=== PATIENT | female | born 1965 | race Caucasian/White ===

== ENCOUNTER → 2023-07-29 08:51 | Outpatient (REF) | payer OTHER, SELFPAY | LOC: WDC 08:51 | PROVIDERS: ATTENDING PHYSICIAN Physician Assistant | DX: Z12.31 Encounter for screening mammogram for malignant neoplasm of breast (principal) | CPT/HCPCS: 77063; 77067 ==

== ENCOUNTER → 2023-09-04 06:57 | Outpatient (REF) | payer OTHER, SELFPAY | LOC: MRI 3T 06:57 | PROVIDERS: ATTENDING PHYSICIAN Physician Assistant Surgical; FAMILY PHYSICIAN Physician Assistant | DX: M23.91 Unspecified internal derangement of right knee (principal) | CPT/HCPCS: 73721 ==

== ENCOUNTER 2023-09-22 00:13 | Emergency (ER) | payer OTHER, SELFPAY ==
[2023-09-22 00:20] VITALS: BP 166/95
[2023-09-22 00:49] LABS: % Basophils 0.5 % (0-2); % Eosinophils 1.7 % (0-6); % Lymphocytes 30.8 % (20.5-51.1); % Monocytes 9.2 % (1.7-9.3); % Neutrophils 56.8 % (42.2-75.2); Absolute Eosinophils 0.1 10^3/uL (0-0.7); Absolute Immature Granulocytes 0.1 10^3/uL (0-0.05); Absolute Lymphocytes 1.8 10^3/uL (1.2-3.4); Absolute Monocytes 0.5 10^3/uL (0.1-0.6); Absolute Neutrophils 3.3 10^3/uL (1.4-6.5); Hematocrit 34.4 % (37.0-47.0); Hemoglobin 11.6 g/dL (12.0-16.0); Mean Corp Hgb Conc. 33.7 g/dL (33.0-37.0); Mean Corpuscular Hgb 30.5 pg (27.0-31.0); Mean Corpuscular Volume 90.5 fL (81.0-99.0); Mean Platelet Volume 9.1 fL (7.4-10.4); Nucleated Red Blood Cells % 0 %; Platelet Count 201 10^3/uL (130-400); Red Cell Dist. Width 13.4 % (11.5-14.5); White Blood Cell Count 5.9 10^3/uL (4.8-10.8)
[2023-09-22 00:59] LABS: ALT (SGPT) 24 U/L (0-35); AST (SGOT) 29 U/L (14-36); Albumin 4.5 g/dl (3.5-5.0); Alkaline Phosphatase 93 U/L (38-126); Blood Urea Nitrogen 16 mg/dl (7-17); Calcium 9.9 mg/dl (8.4-10.2); Carbon Dioxide 27 mmol/L (22-30); Chloride 106 mmol/L (98-107); Glucose 104 mg/dl (70-99); Potassium 4.3 mmol/L (3.5-5.1); Sodium 141 mmol/L (135-145); Total Bilirubin 0.5 mg/dl (0.2-1.3); Total Protein 7.3 g/dl (6.3-8.2); eGFR > 60.00
[2023-09-22 02:14] VITALS: BP 125/76
--- NOTE | 2023-09-22 02:16 | ED.GENMED ---
History of Present Illness
General
Chief Complaint: Heart Rate Problem
Source: patient
Exam Limitations: none
Time Seen by Provider: 09/22/23 02:00
Travel History
Have you had any contact with someone who has COVID-19?: No
Do you have any symptoms of coronavirus? Fever > 100 degrees, chills, cough, shortness of breath, sore throat, loss of taste or smell, muscle aches, or headache?: No
History of Present Illness
History of Present Illness:
This is a 58 year old female that comes in with c/o palpitations. State that she went to lay down in bed and she felt like she had a fish flopping in her chest. State that she has a pulse ox and she used this to see her heart rate and it said that
she was only 45. States that she has a slight headache. Denies any fever, chills, chest pain, SOB,, abd pain, nausea, vomiting, diarrhea, dizziness, urinary burning.
Past History
Past History
ED Past Medical History: Arrthythmia (Palpitations, ), HTN and Other (Migraines, )
ED Past Surgical History: Cholecystectomy, Gynecological (Partial hysterectomy), Orthopedic (Ankle carpal tunnel. ) and Urological (Bladder sling)
Social History
Tobacco: Non-smoker
Alcohol: Occasional
Personal:
Living: with family
Family History
Family History: Negative Diabetes, Hypertension, Early CAD, Asthma or Cancer
Review of Systems
Review of Systems
All Other Systems: ROS reviewed and negative except as documented in HPI and ROS
Constitutional: Reports no symptoms; Denies fever or chills
EENT: Reports no symptoms
Respiratory: Reports no symptoms; Denies cough or trouble breathing
Cardiac: Reports palpitations; Denies chest pain
ABD/GI: Reports no symptoms; Denies abdominal pain, nausea, vomiting or diarrhea
: Reports no symptoms; Denies dysuria, frequency or urgency
Musculoskeletal: Reports no symptoms
Skin: Reports no symptoms
Neurological: Reports headache (Slight); Denies dizzy
Psychiatric: Reports no symptoms
Phy Exam
General Physical Exam
General Presentation: well appearing and no apparent distress
General age: appears stated age
General Skin: warm and dry
General Habitus: normal
General Mental: alert
General Hydration: appears well hydrated
ENT Exam
ENT Exam: TM's normal, pharynx normal and neck supple
Eye Exam
Eye Exam: EOMI
Cardiovascular Exam
Cardiovascular Exam: regular rate/rhythm, no edema, no murmur and normal peripheral pulses
Pulmonary Exam
Pulmonary Exam: lungs clear, no respiratory distress, no rales, chest non tender, no crackles, no rhonchi, no wheezing and no cough
Gastrointestinal Exam
Gastrointestinal Exam: normal bowel sounds, non tender, soft, no organomegaly, no pulsatile mass and non distended
Musculoskeletal Exam
Musculoskeletal Exam: full ROM and no edema
Skin Exam
Skin Exam: normal color, warm/dry, no rash and no petechia
Psychiatric Exam
Psychiatric Exam: normal mood/affect
Course
Orders/Labs/Results
Orders:
Orders
09/22/23 00:23
Electrocardiogram (*1) Urgent
Reason for Study: Chest Pain
EKG- Treatment ONCE
09/22/23 00:35
Comprehensive Metabolic Panel Urgent
TSH Reflex To Free T4 Urgent
Comment: ADDED
09/22/23 00:36
Complete Blood Count/With Diff Urgent
Troponin I Urgent
09/22/23 02:02
Add On- LAB Urgent
Tests Added?: TSH with reflex to free T4
Abnormal Lab Results
09/22/23 09/22/23
00:35 00:36
RBC 3.80 L 10^6/uL
(4.20-5.40)
Hgb 11.6 L g/dL
(12.0-16.0)
Hct 34.4 L %
(37.0-47.0)
Abs Immat Gran (auto) 0.1 H 10^3/uL
(0-0.05)
Immature Gran % 1.0 H %
(0-0.5)
Glucose 104 H mg/dl
(70-99)
09/22/23 00:36
09/22/23 00:35
H/H slightly low, Glucose nonfasting, Troponin <0.012
Vital Signs
Initial and Last Documented VS:
Initial Vital Signs
Temp Pulse Resp BP Pulse Ox
98.1 F 83 14 166/95 99
09/22/23 00:20 09/22/23 00:20 09/22/23 00:20 09/22/23 00:20 09/22/23 00:20
Last Documented Vital Signs
Temp Pulse Resp BP Pulse Ox
98.1 F 72 14 107/62 93
09/22/23 00:20 09/22/23 04:00 09/22/23 04:00 09/22/23 04:00 09/22/23 04:00
MDM/Problems Addressed
Differential Diagnosis Includes:
Palpitations.
MDM/Problems Addressed:
This is a 58 year old female that comes in with c/o feeling like her heart was flopping around in her chest like a fish. States that she has had palpitations before and she takes Metoprolol 50mg in the morning and 50mg in the evening which she took
around 6pm. States that she went to lay down in bed when she felt this.
Will check labs and monitor.
Back into see patient. Explained that her blood work was normal along with the Troponin. There was noted some PAC's on the monitor. TSH is pending. Explained to patient that she could decrease her caffeine intake as it you are prone to extra
beats. Patient to increase her water intake to 8-8oz glasses daily. Follow up with the [facility] for further evaluation as they may wish to add to her medication, increase or have patient wear a Holter monitor. Patient to return with any chest
pain, or any other concerns.
Chronic conditions affecting care:
History of Palpitations
Acute Exacerbation and/or Progression of Chronic Illness:
Palpitations
*Pulse Oximetry
Patient hypoxic: no
*EKG
Interpreted by ED Provider?: Yes
Heart Rate: 79
Rate: normal
Rhythm: sinus
[place]: left axis deviation
Interval: normal interval
QRS Pattern: normal QRS
Ischemia: T-wave inversion (III, aVR, V1, V2, V3, Checked by Dr. Almeida)
*Towel Distributor Interpretation
Rate: normal
Heart Rate: 77
Rhythm: sinus
*Critical Care Note
Total Time (30-74mins, 75-104mins- exclusive of procedures): Not Applicable
ED Attending Note
-
Portions of this chart may have been created with voice recognition software.� Occasional wrong word or��sound alike� substitutions may have occurred due to the inherent limitations of voice recognition software.
Discharge Plan
Departure
Patient Disposition: Home (Routine Discharge)
Date of Disposition: 09/22/23
Time of Disposition: 03:05
Patient with high blood pressure during this ER visit?: Yes
Condition: Good
Covid-19: Not Applicable
Discharge Problem:
Palpitation
Instructions: Palpitations (DC), BLOOD PRESSURE
Prescriptions:
No Action
multivitamin [One Daily Essential] 1 EACH tablet
1 ea PO DAILY
milk thistle 500 MG capsule
1,000 mg PO DAILY
naproxen sodium [Aleve] 220 MG tablet
2 tablets PO DAILYPRN PRN (Reason: knee pain)
metoprolol succinate [Toprol XL] 25 MG tablet extended release 24 hr
25 mg PO DAILY
guar gum-calcium carbonate 100 MG tablet,chewable
200 mg PO DAILY
cholecalciferol (vitamin D3) 2,000 UNITS tablet
2,000 units PO DAILY
L.acidoph, paracasei,B. lactis 1 EACH capsule
1 ea PO DAILY
Activity Restrictions/Additional Instructions:
As discussed, your blood work is normal. Please increase your water intake to 8-8oz glasses daily. Follow up with the family doctor or your [facility] for further evaluation. They may need to increased your Metoprolol or add another medication to
help decrease the palpitations. They may also wish for you to wear a Holter monitor for further evaluation. Please try and stay away form the Caffeine as this will increased the palpitations as this is a stimulant. IF YOU HAVE ANY CHEST PAIN, OR
ANY OTHER CONCERNS PLEASE RETURN TO THE EMERGENCY ROOM.
Interventions
Interventions:
*Risk Screen - Suicide Last Done: 09/22/23 00:20
*General Assessment Last Done: 09/22/23 00:20
*Neglect/Abuse Screening Last Done: 09/22/23 00:20
ED- Fall Risk Assessment Last Done: 09/22/23 02:30
*ED COVID-19 Vaccine History Last Done: 09/22/23 04:34
*Nursing Disposition Last Done: 09/22/23 04:34
ED- Cardiac Assessment Last Done: 09/22/23 02:30
ED- Pulmonary Assessment Last Done: 09/22/23 02:30
Discharge Date and Time
Discharge Date/Time: 09/22/23 04:35
Print Language: PARAGUAYAN
[2023-09-22 02:56] LABS: Troponin I < 0.012 ng/ml
[2023-09-22 03:00] VITALS: BP 105/74
[2023-09-22 03:46] LABS: TSH Reflex To Free T4 1.15 uIU/ml (0.47-4.68)
[2023-09-22 04:00] VITALS: BP 107/62
--- NOTE | 2023-09-22 04:15 | EDRN ---
Went over results with patient and plan to be discharged, patient understands results and follow up.
== END 2023-09-22 04:35 | disposition home or self-care (01) ==
LOC: EMR 00:13
PROVIDERS: Clinical Nurse Specialist Family Health; EMERGENCY PHYSICIAN Emergency Medicine; FAMILY PHYSICIAN Physician Assistant
DX: R00.2 Palpitations (principal); I10 Essential (primary) hypertension; Z82.49 Family history of ischemic heart disease and other diseases of the circulatory system; Z90.49 Acquired absence of other specified parts of digestive tract
CPT/HCPCS: 99283; 80053; 84443; 84484; 85025; 93005

== ENCOUNTER → 2024-05-19 06:45 | Outpatient (REF) | payer OTHER, SELFPAY | LOC: PAVMRI 06:45 | PROVIDERS: ATTENDING PHYSICIAN Physician Assistant Surgical; REFERRING PHYSICIAN Specialist | DX: M25.562 Pain in left knee (principal) | CPT/HCPCS: 73721 ==

== ENCOUNTER 2024-07-03 05:56 | Inpatient (IN) | payer OTHER, SELFPAY ==
[2024-06-08 09:02] LABS: Hematocrit 37.2 % (37.0-47.0); Mean Corp Hgb Conc. 32.3 g/dL (33.0-37.0); Mean Corpuscular Hgb 29.9 pg (27.0-31.0); Mean Corpuscular Volume 92.5 fL (81.0-99.0); Mean Platelet Volume 9.5 fL (7.4-10.4); Platelet Count 202 10^3/uL (130-400); Red Blood Cell Count 4.02 10^6/uL (4.20-5.40); White Blood Cell Count 4.9 10^3/uL (4.8-10.8)
[2024-06-08 09:30] LABS: ALT (SGPT) 32 U/L (0-35); AST (SGOT) 29 U/L (14-36); Albumin 4.6 g/dl (3.5-5.0); Alkaline Phosphatase 66 U/L (38-126); Blood Urea Nitrogen 14 mg/dl (7-17); Calcium 9.5 mg/dl (8.4-10.2); Carbon Dioxide 29 mmol/L (22-30); Chloride 102 mmol/L (98-107); Glucose 86 mg/dl (70-99); Potassium 4.1 mmol/L (3.5-5.1); Sodium 140 mmol/L (135-145); Total Bilirubin 0.7 mg/dl (0.2-1.3); Total Protein 6.9 g/dl (6.3-8.2); eGFR > 60.00
[2024-06-08 10:36] LABS: Glycohemoglobin (HgbA1c) 5.5 % (4.0-5.6)
[2024-06-08 13:08] VITALS: BMI 32.3
[2024-06-08 14:10] VITALS: BMI 32.3
[2024-07-03] VITALS (21 sets, daily range): BP systolic 93–139; BP diastolic 57–107; PULSE 66–80; O2SAT 92; BMI 32.3
[2024-07-03] MEDS: NORMOSOL-R/PLASMALYTE-A 1000 IV (06:31)
[2024-07-03] MEDS: CELEBREX 200 MG PO (06:31)
[2024-07-03] MEDS: TYLENOL 650 MG PO ×2 (06:31→20:14)
--- NOTE | 2024-07-03 07:59 | W.PN.UPDATE ---
Update Note
Progress Note Update
L knee OA s/p L TKA w/ Dr Jaime 07/03/24
DVT prophylaxis - Eliquis at modified dosing, b/l venous foot pumps
- Eliquis 5 mg PO BID to be resumed POD 3 if hemodynamically stable
HTN - + parameters - monitor BP
PACs with occasional palpitations, PSVT, and PAF - monitor on tele
- Continue BB
- Resume Eliquis as stated above
GERD - add Pepcid HS
Probable IBS w/ diarrhea - Colace ONLY initially for post-surgical bowel regimen
Mild mitral regurgitation
Mild aortic regurgitation
Diverticulosis
Hemorrhoids with intermittent rectal bleeding
Multilevel degenerative disc disease
Remote migraines
Stress incontinence
Obesity, BMI 32.3
--- NOTE | 2024-07-03 09:09 | OR.RPT ---
Operative Report
Operative Report
Orthopaedic Surgery Operative Note
DATE OF OPERATION: 07/03/2024
PREOPERATIVE DIAGNOSES: Osteoarthritis, left knee.
POSTOPERATIVE DIAGNOSES: Osteoarthritis, left knee.
OPERATION PERFORMED:
1) Left total knee arthroplasty (CPT 44232)
2) Intraosseous administration of analgesic (CPT 86404)
SURGEON: Rick Jaime MD
ASSISTANTS: Roland Rosa PA-C who helped with patient and limb positioning and retraction
ANESTHESIA: Spinal by anesthesia plus intraoperative infusion of morphine into the tibial metaphysis by Dr. Jaime
COMPLICATIONS: None.
ESTIMATED BLOOD LOSS: 20mL
DRAINS: None
TOURNIQUET TIME: 47 minutes.
IMPLANTS:
- Woo Persona CR Femur, size 8
- Woo Persona tibia base plate, size D
- Woo Persona medial constrained articular surface, 12 mm
- All-polyethylene patellar component, size 29
- DJO Taft bone cement
INDICATIONS: The patient presented to my office with debilitating left knee pain due to osteoarthritis. We reviewed the natural history of this problem, as well as the risks, benefits, and alternatives of various treatment options. The patient
exhausted all nonoperative treatment options and wished to proceed with knee replacement surgery. The patient understood the risks which included, but were not limited to, bleeding, infection, failure to relieve pain, more pain than preop, damage to
blood vessels and nerves, need for reoperation, mechanical failure of the implants, wound healing problems, stiffness, instability, blood clot, pulmonary embolism, myocardial infarction, pneumonia, arrhythmia, CVA, and . The patient accepted
these risks and wished to proceed. All questions were answered, and informed consent was obtained.
PROCEDURE IN DETAIL: The patient was identified in the preoperative holding area. The left knee was identified as the operative site. The patient was taken in the operating room and placed in a supine position on the operating table. Spinal
anesthesia was performed. IV antibiotics and tranexamic acid were administered. An SCD was placed on the right lower extremity. A well-padded tourniquet was placed on the proximal thigh. All bony prominences were well padded. The left lower
extremity was prepped and draped in the usual sterile fashion.
We performed a surgical time-out. An interarticular block was performed with local anesthetic with epinephrine. The limb was exsanguinated with an Esmarch bandage, then the tourniquet was inflated to 250 mmHg. I performed interosseous administration
of morphine-saline solution via a Jamshidi style intraosseous needle into the proximal medial tibial metaphysis as described by Too Dasilva MD. This was performed to aid in pain control. A midline skin incision was made followed by a medial
parapatellar arthrotomy. A subperiosteal peel was performed on the medial tibia. I excised part of the infrapatellar fat pad to improve our visualization as well as tissue over anterior femur. The patella was everted and the knee was flexed. There
was full thickness wear of central patella and medial femoral condyle and medial tibia plateau. The trochlea was dysplastic and flat. I excised the remnants of the anterior and posterior cruciate ligaments as well as tibial and femoral osteophytes
with rongeurs.
The knee was flexed, and the extramedullary tibial cutting guide was aligned. Piatt was aligned at neutral, rotation was centered on the tibial tubercle, and coronal alignment was aligned with the mechanical axis of the tibia and center of the ankle
joint. The cut height was 10mm off the lateral tibia joint surface. The guide was secured into place. The MCL and LCL were protected. The tibia surface was cut. The cut surface was inspected after removal to ensure appropriate height and slope based
on the preoperative plan. The cut was checked with a drop nataly. It was centered nicely at the ankle.
A drill was used to open the femoral canal. The intramedullary distal femoral cutting guide was inserted into the femur. This was set at 5 degrees +0. This was secured into place with three pins. The cut level was checked with an bari wing. The
distal femur was cut through the cutting guide. The IM guide was reinserted to double check that the level of resection was flush and in appropriate alignment.
Karen's line and the transepicondylar axis were marked on the femur. The femoral sizing guide was applied to the anterior femur. Pins were inserted, and the 4-in-1 cutting guide was applied and secured into place. The rotation was compared to
Karen's line, the transepicondylar axis, and the neutral tibia cut and was found to be appropriate. The width was checked and found to be appropriate and lateralized on the femur. The anterior, posterior, and chamfur cuts were made. A lamina
hand stapler was used to open the flexion gap, and posterior osteophytes were removed with a curved osteotome. The remnant medial and lateral meniscus were also removed. I prophylactically cauterized the lateral geniculate arteries. A 10mm spacer block
was applied to the flexion gap and was noted to be balanced medially and laterally. The knee was extended, and the block showed symmetric to extension and flexion gaps.
The tibia was exposed and sized. Rotation was set in line with the tibial tubercle and congruent with the femur. The trial was secured into place with two pins. The trial femur was impacted into place, and a trial articular surface was placed. The
knee was taken through range of motion and noted to be stable throughout the arc of motion without gaping or excess tension. In extension, a measured resection of the patella was performed. The patella was sized, and lug holes were drilled. A trial
patella component was applied, and it was noted to track centrally throughout the arc of motion without need for further releases.
The trials were removed. The tibia keel was prepared with the punch and the drill. The bone surfaces were irrigated with sterile saline and dried. The cement was mixed in a vacuum mixer. Cement gun was used to apply cement to the tibial surface and
the undersurface of the tibial implant. Cement was pressurized into the tibial canal and tibia surface. The tibial component was impacted into place. Excess cement was removed. Cement was applied to the femoral surface and the femoral component. The
femoral component was impacted into place, and excess cement removed. A trial articular surface was inserted, and the knee was extended while the cement polymerized. The tourniquet was let down, and meticulous hemostasis was achieved. Dilute
betadine was poured into the wound and allowed to soak for 3 minutes. The knee was irrigated with copious normal saline.
Once the cement was polymerized, the trial articular surface was removed. Any excess cement was removed. The knee was trialed, and the final articular surface was selected and inserted into the tibial locking mechanism. The knee was reduced. A fresh
drape was applied to the surgical field.
The arthrotomy was closed with 0-PDS. Once closed, an interarticular block was performed with local anesthetic with epi. The deep dermal layer was closed with 2-0 PDS, and the subcuticular skin was closed with 3-0 monocryl. A Dermabond Prineo
dressing was applied to the skin in full flexion. Once this was completely dry, a sterile waterproof dressing was applied.
The anesthesia team performed an adductor canal block in the OR. The patient awoke from anesthesia without any difficulties. The sponge and instrument counts were correct x2 at the end of the case.
Seferino Jaime MD
[2024-07-03] MEDS: DILAUDID 0.25 MG IV (10:15)
[2024-07-03] MEDS: NORCO 5/325 1 TABLET PO (10:17)
--- NOTE | 2024-07-03 13:29 | PTCARENOTE ---
Pt w/steady 02 sat 90s, suddenly began desaturating to 70s, then return to normal. Tried to wean 02 prior to pt desaturating, replaced after 1st episode.
--- NOTE | 2024-07-03 14:36 | PTCARENOTE ---
Dr Donaldson in to see pt , pt sat WNL while he was here. Pt continues to desat to mostly 70s-80s, sometimes as low as 58 on RA, returns to normal after 20 seconds or so.Will notify Tori Connor next.
[2024-07-03] MEDS: DELTASONE 40 MG PO (15:07)
[2024-07-03] MEDS: DUONEB 3 ML INH (15:18)
--- NOTE | 2024-07-03 15:30 | W.PN.UPDATE ---
Update Note
Progress Note Update
Was alerted to patient's oxygen desaturations while recovering in the PACU.
When evaluated, patient's pulse ox ranged in the 70s and 80s.
Pulse ox was on patient's toe at the time. I did ask it be placed on the patient's ear.
Pulse ox on patient's ear with encouraged deep breathing and IS use was between 87-94%.
Patient was observed for several minutes. No tachypnea. Lungs CTA b/l. No reported SOB, chest pain, or cough. Overall looks well.
No personal hx of pulmonary issues. No CHF or PE hx.
Will order Prednisone taper and Duoneb STAT w/ prn doses for later should they be needed.
Patient will be monitored on continuous pulse ox overnight and will continue IS q1hwa.
Discussed with surgeon - will hold off on imaging for now given SpO2 improves w/ encouraged deep breathing and IS.
[2024-07-03] MEDS: ANCEF 5 IV ×2 (16:33→21:02)
--- NOTE | 2024-07-03 19:27 | PTCARENOTE ---
pt admitted to 2S room 2115 via bed from PACU at 1700. pt oriented to room, bed controls, call moyer and plan of care with verbalized understanding. assessment as documented. pt denies SOB, chest pain or pressure. telemetry placed ad reading SR
in 90's. continuous pox on and reading 92% on RA. care ongoing.
[2024-07-03] MEDS: COLACE 100 MG PO (20:15)
[2024-07-03] MEDS: ELIQUIS 2.5 MG PO (20:15)
[2024-07-03] MEDS: TOPROL XL 50 MG PO (20:15)
[2024-07-03] MEDS: BACTROBAN 2% OINTMENT 1 APPLIC NASAL (20:15)
[2024-07-03] MEDS: VITAMIN D3 (cholecalciferol) 125 MCG PO (20:15)
[2024-07-03] MEDS: PEPCID 20 MG PO (21:02)
--- NOTE | 2024-07-03 21:30 | PTCARENOTE ---
Addendum entered by Guerline Moreno RN 07/04/24 00:46:
Patient down to 1L n/c- 91-93%
Original Note:
Patient is on 2L oxygen as patient pulse ox to 85% on RA. clear lungs/ No SOB/ no c/o any other discomfort. On 2L patient sat about 91-95%. Bp- 133/75, HR- 89, Afebrile. Dr Estrella, made aware via TT. No new orders at this time.
[2024-07-04 03:45] VITALS: BP 117/74
[2024-07-04] MEDS: TYLENOL 650 MG PO (06:20)
--- NOTE | 2024-07-04 06:49 | W.PN.ORTHO ---
Today's Communication / Plan
-
59-year-old female POD #1 Left Total Knee Arthroplasty 07/03/[address] Jaime.
- WBAT LLE with use of walker for assistance.
- DVT prophylaxis - Eliquis at modified dosing, b/l venous foot pumps. Eliquis 5 mg PO BID to be resumed POD 3.
- PT/OT. Outpatient PT to begin Saturday07/06/2024 at [facility].
- Post-operatively, we were alerted to patient's oxygen desaturation while covering in the PACU. Since, O2 saturation has improved. She is currently resting in bed comfortably and denies any lightheadedness, chest pain, or shortness of breath. She
was on oxygen supplementation yesterday evening (1-2 L), however was recently transitioned to room air. We will continue to monitor this with PT/OT evaluation this AM. As long as O2 saturation is stable, we will plan for discharge home today. If
desaturation is noted again, will consider medical/pulmonary consultation prior to D/C.
- Ice therapy and elevation for edema control.
- Post-operative pain medication script sent to pharmacy on file.
- Mepilex dressing to remain in place until post-op visit.
- Follow-up as outpatient 2 weeks post-op. Appointment scheduled.
Assessment
.
Distal Motor Intact: Yes
Dressing:
Mepilex dressing clean, dry and intact.
Calf is soft and nontender to palpation.
Able to dorsiflex and plantarflex left ankle.
NVI distally.
Assessment:
POD #1 Left Total Knee Arthroplasty 07/03/[address] Jaime.
Plan
.
Surgery / Date: 07/03/[address] Jaime
DVT Prophylaxis: Other (Eliquis )
Activity:
Out of bed.
PT/OT.
WBAT LLE.
Discharge Plan: Home w/ Outpatient PT
Discharge Information:
Outpatient physical therapy to begin on Saturday at [facility].
Subjective
.
.:
Patient seen and examined this morning by Orthopedic Surgery. Overall, she reports that she is doing well. She reports that her pain is well-controlled. She denies any lightheadedness, chest pain, or shortness of breath. PT/OT evaluation pending
this AM. Post-operatively, we were alerted to patient's oxygen desaturation while covering in the PACU. Since, O2 saturation has improved. She is currently resting in bed comfortably. She was on oxygen supplementation yesterday evening (1-2 L),
however was recently transitioned to room air.
Vital Signs and Labs
.
Vital Signs and Labs:
Lab Results
06/08/24 07:31
06/08/24 07:31
Temp Pulse Resp BP Pulse Ox
97.5 F 87 16 117/74 94
07/04/24 03:45 07/04/24 03:45 07/04/24 03:45 07/04/24 03:45 07/04/24 03:45
Non-invasive Hgb result: 12.9
--- NOTE | 2024-07-04 07:03 | W.DS.TRANS ---
DC Summary - [facility] [employer]
-
Discharge Instructions:
Documentation # [id number]
Sleep Apnea Risk Low
Discharge Diagnosis/Procedures L knee OA s/p L TKA w/ Dr Jaime 07/03/24
Diet Regular
Activity As tolerated,With Walker
Driving Restrictions Not until seen by your Dr
Bathing Restrictions OK to Shower
Other Services PT
Wound Care Leave dressing on until seen by surgeon's office
for follow-up in 2 weeks.
Instructions:
Stand-Alone Forms: Total Hip/Knee Replacement D/C
Changes to Home Medications: No
Discharge Medications:
DC Medications w/original date entered in Fnbox
Dose (Milk Thistle, Turmeric) 2 oz PO BID 06/05/24
Metamucil 2 tsp PO DAILY 06/05/24
Probiotic 1 cap PO DAILY 06/05/24
apixaban 5 mg tablet (Eliquis) 5 mg PO BID 06/05/24
biotin 10,000 mcg capsule 10,000 mcg PO DAILY 06/05/24
cholecalciferol (vitamin D3) 125 mcg (5,000 unit) tablet (Vitamin D3) 125 mcg PO DAILY 06/05/24
coenzyme Q10 200 mg capsule (Co Q-10) 200 mg PO DAILY 06/05/24
garlic extract 1,000 mg PO DAILY 06/05/24
metoprolol succinate 50 mg tablet,extended release 24 hr 50 mg PO BID 06/05/24
multivitamin 1 tab PO DAILY 06/05/24
mupirocin 2 % topical ointment 1 applic intranasal BID #1 tube 06/08/24
acetaminophen 325 mg tablet 650 mg (2 x 325 mg) PO Q4HPRN PRN mild pain #60 tabs 07/03/24
apixaban 2.5 mg tablet (Eliquis) 2.5 mg PO BID #3 tabs 07/03/24
docusate sodium 100 mg capsule 100 mg PO BID #30 caps 07/03/24
famotidine 20 mg tablet 20 mg PO HS #30 tabs 07/03/24
hydrocodone 5 mg-acetaminophen 325 mg tablet 1 - 2 tab PO Q6H PRN moderate-severe pain #30 tabs 07/03/24
lisinopril 40 mg tablet 40 mg PO HS #1 tab 07/03/24
ondansetron HCl 4 mg tablet 4 mg PO Q6H PRN nausea and vomiting #30 tabs 07/03/24
prednisone 10 mg tablet 40 mg (4 x 10 mg) PO TAPER #20 tabs 07/03/24
sennosides 8.6 mg tablet (Lorrie-rafael) 17.2 mg (2 x 8.6 mg) PO BID PRN constipation #30 tabs 07/03/24
Home Medication Changes
Pending Results: Yes
Additional Pending Results:
PT/OT Evaluation this AM.
O2 Saturation.
Total time spent discharging patient (in min): 45 Minutes
[2024-07-04 07:30] VITALS: BP 119/72
[2024-07-04 09:25] VITALS: BP 160/80
[2024-07-04] MEDS: DELTASONE 40 MG PO (09:43)
[2024-07-04] MEDS: ELIQUIS 2.5 MG PO (09:43)
[2024-07-04] MEDS: COLACE 100 MG PO (09:43)
[2024-07-04] MEDS: BACTROBAN 2% OINTMENT 1 APPLIC NASAL (09:43)
[2024-07-04] MEDS: VITAMIN D3 (cholecalciferol) 125 MCG PO (09:43)
[2024-07-04] MEDS: TOPROL XL 50 MG PO (09:44)
[2024-07-04] MEDS: NORCO 5/325 2 TABLET PO (09:44)
[2024-07-04 10:36] VITALS: O2SAT 97
--- NOTE | 2024-07-04 11:08 | CM ---
Met with pt and her at bedside
Pt reports she lives with her in a multi-story home; no steps to enter, 13 steps to 2nd fl
Independent at baseline, active, drives
DME - rolling walker, single point cane, shower chair
SNF/HH - denies past hx
Has ride at discharge
PCP - Lili Huang
Pharm - [facility] in [place]
Has appoint on 07/06 for outpatient PT at the ambulatory center
Has Rx and transportation
Plan - home with outpatient PT
[2024-07-04 11:26] VITALS: BP 123/67
== END 2024-07-04 12:33 | disposition home or self-care (01) | DRG 470 ==
LOC: 2 SOUTH 05:56
PROVIDERS: ADMITTING PHYSICIAN Orthopaedic Surgery; FAMILY PHYSICIAN Physician Assistant; REFERRING PHYSICIAN Internal Medicine Cardiovascular Disease
PROC: 0SRD0J9 Replacement of Left Knee Joint with Synthetic Substitute, Cemented, Open Approach (ICD-10-PCS; 2024-07-03)
DX: M17.12 Unilateral primary osteoarthritis, left knee (principal); I47.19 Other supraventricular tachycardia; I10 Essential (primary) hypertension; I48.0 Paroxysmal atrial fibrillation; K21.9 Gastro-esophageal reflux disease without esophagitis; K64.9 Unspecified hemorrhoids; K58.0 Irritable bowel syndrome with diarrhea; E66.9 Obesity, unspecified; N39.3 Stress incontinence (female) (male); Z68.32 Body mass index [BMI] 32.0-32.9, adult; Z87.19 Personal history of other diseases of the digestive system; Z90.710 Acquired absence of both cervix and uterus; Z79.01 Long term (current) use of anticoagulants; Z88.4 Allergy status to anesthetic agent; Z88.5 Allergy status to narcotic agent; Z88.0 Allergy status to penicillin
CPT/HCPCS: 36415; 73560; 80053; 83036; 85027; 87070; 94640; 97110; 97116; 97163; 97167; 97530; 97535; C1713; C1776

== ENCOUNTER 2024-07-05 03:29 | Emergency (ER) | payer OTHER, SELFPAY ==
[2024-07-05 03:29] VITALS: BMI 34.2
[2024-07-05 03:32] VITALS: BP 170/86
--- NOTE | 2024-07-05 04:57 | ED.GENMED ---
History of Present Illness
General
Chief Complaint: Post Operative Problem(s)
Source: patient and spouse
Exam Limitations: none
Time Seen by Provider: 07/05/24 04:39
History of Present Illness
History of Present Illness:
59-year-old female presents with left knee pain, nausea and vomiting. Patient had total knee replacement surgery on Saturday and was discharged home yesterday afternoon. She states that her pain was under control. This evening she took Vicodin but
no Zofran. Tonight she states that the pain was out of control and she had severe nausea or vomiting. She presents to the emergency department for
Past History
Past History
ED Past Medical History: Arrthythmia (Palpitations, ), HTN and Other (Migraines, )
ED Past Surgical History: Cholecystectomy, Gynecological (Partial hysterectomy), Orthopedic (Ankle carpal tunnel. ) and Urological (Bladder sling)
Social History
Tobacco: Non-smoker
Alcohol: Occasional
Personal:
Living: with family
Family History
Family History: Negative Diabetes, Hypertension, Early CAD, Asthma or Cancer
Phy Exam
General Physical Exam
General Presentation: moderate distress
General age: appears stated age
General Skin: warm and dry
General Habitus: normal
General Mental: alert
General Hydration: appears well hydrated
ENT Exam
ENT Exam: EOMI, pharynx normal, neck supple and normocephalic
Eye Exam
Eye Exam: PERRL, cornea clear and conjunctiva normal
Cardiovascular Exam
Cardiovascular Exam: regular rate/rhythm, no edema, no murmur and normal peripheral pulses
Pulmonary Exam
Pulmonary Exam: lungs clear, no respiratory distress, no rales, no crackles, no rhonchi, no stridor, no wheezing and no cough
Gastrointestinal Exam
Gastrointestinal Exam: normal bowel sounds, non tender, soft, no organomegaly, no pulsatile mass and non distended
Neurological Exam
Neurological Exam: alert, oriented x3, no motor deficits and speech normal
Musculoskeletal Exam
Musculoskeletal Exam: full ROM and no edema
Skin Exam
Skin Exam: normal color, warm/dry, no rash and no petechia
Psychiatric Exam
Psychiatric Exam: normal mood/affect
Course
Orders/Labs/Results
Orders:
Orders
07/05/24 04:48
Ondansetron Injectable [Zofran] 4 mg .ROUTE .STK-MED ONE
07/05/24 04:49
HYDROmorphone [Dilaudid] 1 mg .ROUTE .STK-MED ONE
07/05/24 04:52
HYDROmorphone [Dilaudid] 1 mg IV NOW STA
07/05/24 04:53
Ondansetron Injectable [Zofran] 4 mg IV NOW STA
07/05/24 05:12
US Periph Venous LOWER Ext LT Urgent
Comment:
Reason For Exam: pain
07/05/24 06:35
HYDROmorphone [Dilaudid] 1 mg IV NOW STA
07/05/24 06:41
Acetaminophen 1000MG/100Ml [Ofirmev] 1,000 mg in 100 ml IV ONCE
Acetaminophen IV Indication:: ED Narcotic History-ONCE
Vital Signs
Initial and Last Documented VS:
Initial Vital Signs
Temp Pulse Resp BP Pulse Ox
98.1 F 86 24 170/86 100
07/05/24 03:32 07/05/24 03:32 07/05/24 03:32 07/05/24 03:32 07/05/24 03:32
Last Documented Vital Signs
Temp Pulse Resp BP Pulse Ox
98.1 F 68 16 117/64 99
07/05/24 03:32 07/05/24 06:32 07/05/24 06:32 07/05/24 08:00 07/05/24 08:30
*Critical Care Note
Total Time (30-74mins, 75-104mins- exclusive of procedures): Not Applicable
Update Note
Update Note:
Spoke with Dr. Estrella, orthopedics. He recommends we get her pain under control. He will speak with one of his associates to change the pain medication. He does recommend discharge.
ED Attending Note
-
Portions of this chart may have been created with voice recognition software.� Occasional wrong word or��sound alike� substitutions may have occurred due to the inherent limitations of voice recognition software.
Discharge Plan
Departure
Patient Disposition: Home (Routine Discharge)
Date of Disposition: 07/05/24
Time of Disposition: 07:08
Patient with high blood pressure during this ER visit?: Yes
Discharge Problem:
Post-operative pain
Instructions: Wound Care (DC), Postoperative Pain (DC)
Prescriptions:
No Action
multivitamin Tablet
1 tab PO DAILY
metoprolol succinate 50 mg Tablet Extended Release 24 Hr
50 mg PO BID
biotin 10,000 mcg Capsule
10,000 mcg PO DAILY
coenzyme Q10 [Co Q-10] 200 mg Capsule
200 mg PO DAILY
cholecalciferol (vitamin D3) [Vitamin D3] 125 mcg (5,000 unit) Tablet
125 mcg PO DAILY
Eliquis 5 mg Tablet
5 mg PO BID
Rx Instructions:
to resume 07/06/24
Dose (Milk Thistle, Turmeric)
2 oz PO BID
Metamucil
2 tsp PO DAILY
Probiotic
1 cap PO DAILY
garlic extract
1,000 mg PO DAILY
Rx Instructions:
can resume 07/10/24
mupirocin 2 % ointment
1 applic intranasal BID Qty: 1 0RF
Patient Comments:
started treatment saturday06/30/24 and completed BID, last took at home 07/03/24 am
docusate sodium 100 mg Capsule
100 mg PO BID Qty: 30 0RF
Eliquis 2.5 mg Tablet
2.5 mg PO BID Qty: 3 0RF
Rx Instructions:
Cut 5 mg tab in 05/07 (= 2.5 mg) and take twice a day from 3/1 PM to 3/2 PM.
Resume Eliquis 5 mg twice daily on 3/3 AM.
hydrocodone-acetaminophen 5-325 mg Tablet
1 - 2 tab PO Q6H PRN (Reason: moderate-severe pain) Qty: 30 0RF
Rx Instructions:
1 tab for moderate pain, 2 if severe.
Dx total joint.
famotidine 20 mg Tablet
20 mg PO HS Qty: 30 0RF
Rx Instructions:
Take nightly while on post-surgical pain meds to prevent GI upset.
sennosides [Lorrie-rafael] 8.6 mg Tablet
17.2 mg PO BID PRN (Reason: constipation) Qty: 30 0RF
Rx Instructions:
Add to bowel regimen of Colace if no bowel movement occurs within 48-72 hours post-surgery.
acetaminophen 325 mg Tablet
650 mg PO Q4HPRN PRN (Reason: mild pain) Qty: 60 0RF
Rx Instructions:
Do NOT exceed >4000 mg daily while on [place].
1 [place] tab = 325 mg of Tylenol.
ondansetron HCl 4 mg tablet
4 mg PO Q6H PRN (Reason: nausea and vomiting) Qty: 30 0RF
lisinopril 40 mg Tablet
40 mg PO HS Qty: 1 0RF
Rx Instructions:
HOLD IF systolic blood pressure <130 while on post-surgical narcotics.
prednisone 10 mg tablet
40 mg PO TAPER Qty: 20 0RF
Rx Instructions:
4 TABS X 2 DAYS, 3 TABS X 2 DAYS, 2 TABS X 2 DAYS, 1 TAB X 2 DAYS, THEN STOP
Referrals:
Lili Huang PA [Family Provider] -
Rick Jaime MD [Active] -
Activity Restrictions/Additional Instructions:
Someone from Dr. Jaime's office will reach out to you to adjust your pain medication. Please continue to take your current pain medicines as previously directed.
It was a pleasure meeting you and taking part in your care. We hope for your continued healing and wellness.
Please read discharge instructions in their entirety. However, they are for general education and may not describe your exact diagnosis at discharge. Information on your ER visit and medical conditions were discussed with you along with appropriate
follow up information...
If indicated, please take your medications as instructed and indicated on discharge paperwork.
Please schedule a follow up appointment as directed. Call to schedule an appointment
Please return to the emergency department with ANY change in, persisting, or worsening of symptoms. If any of your symptoms do not improve, or persist, or become more severe within 6-12 hours, please return to the emergency department for further
care.
Please return to the emergency department if you develop a headache, neck pain/stiffness, fever greater than 100.4F, chest pain, shortness of breath, persistent nausea, vomiting, slurred speech, difficulty walking, numbness/tingling, weakness, signs
of infection or any other symptoms that are worrisome to you.
If you have any questions or concerns please do not hesitate to call the Hospital at or E-mail me directly at [email or web address]
Interventions
Interventions:
*Risk Screen - Suicide Last Done: 07/05/24 03:32
*General Assessment Last Done: 07/05/24 04:42
*Neglect/Abuse Screening Last Done: 07/05/24 03:32
ED-Musculoskeletal Assessment Last Done: 07/05/24 05:31
ED-Peripheral Vascular Assessment Last Done: 07/05/24 05:31
ED-Skin Assessment Last Done: 07/05/24 05:31
Discharge Date and Time
Print Language: STATELESS
[2024-07-05] MEDS: ZOFRAN 4 MG IV (05:00)
[2024-07-05] MEDS: DILAUDID 1 MG IV ×2 (05:00→06:41)
[2024-07-05 05:09] VITALS: BP 141/73
--- NOTE | 2024-07-05 05:34 | EDRN ---
Pt.'s pulse ox. dropped to 80% on RA while sleeping s/p analgesic administration. Pt. able to bring pulse ox. back up to 95% on RA w/ direction. Pt. placed on 2L NC while asleep. Pt. awaits ready ultrasound.
[2024-07-05 06:32] VITALS: BP 136/65
[2024-07-05] MEDS: OFIRMEV 100 IV (06:48)
[2024-07-05 07:00] VITALS: BP 130/66
[2024-07-05 08:00] VITALS: BP 117/64
== END 2024-07-05 08:51 | disposition home or self-care (01) ==
LOC: EMR 03:29
PROVIDERS: EMERGENCY PHYSICIAN Student in an Organized Health Care Education/Training Program; FAMILY PHYSICIAN Physician Assistant; OTHER PHYSICIAN Orthopaedic Surgery
DX: G89.18 Other acute postprocedural pain (principal); M25.561 Pain in right knee; I10 Essential (primary) hypertension; Z96.652 Presence of left artificial knee joint
CPT/HCPCS: 96374; 96375; 96376; 99284; 93971

== ENCOUNTER → 2024-07-29 13:39 | Outpatient (REF) | payer OTHER, SELFPAY | LOC: WDC 13:39 | PROVIDERS: ATTENDING PHYSICIAN Physician Assistant | DX: Z12.31 Encounter for screening mammogram for malignant neoplasm of breast (principal) | CPT/HCPCS: 77063; 77067 ==

== ENCOUNTER 2024-07-31 12:41 | Outpatient (RCR) | payer OTHER, SELFPAY | END 2024-07-31 23:59 | disposition home or self-care (01) | LOC: RPT 12:41 | PROVIDERS: ATTENDING PHYSICIAN Orthopaedic Surgery; FAMILY PHYSICIAN Physician Assistant | DX: Z47.1 Aftercare following joint replacement surgery (principal); Z96.652 Presence of left artificial knee joint; Z73.6 Limitation of activities due to disability | CPT/HCPCS: 97010; 97110; 97116; 97140; 97162; 97530 ==

== ENCOUNTER 2024-09-01 09:55 | Outpatient (RCR) | payer OTHER, SELFPAY | END 2024-09-01 23:59 | disposition home or self-care (01) | LOC: RPT 09:55 | PROVIDERS: ATTENDING PHYSICIAN Orthopaedic Surgery; FAMILY PHYSICIAN Physician Assistant | DX: Z47.1 Aftercare following joint replacement surgery (principal); Z73.6 Limitation of activities due to disability; R26.89 Other abnormalities of gait and mobility; M25.562 Pain in left knee; M62.81 Muscle weakness (generalized); Z96.652 Presence of left artificial knee joint | CPT/HCPCS: 97010; 97110; 97112; 97140; 97530 ==

== ENCOUNTER 2024-09-16 11:06 | Outpatient (RCR) | payer OTHER, SELFPAY | END 2024-09-16 23:59 | disposition home or self-care (01) | LOC: RPT 11:06 | PROVIDERS: ATTENDING PHYSICIAN Orthopaedic Surgery; FAMILY PHYSICIAN Physician Assistant | DX: Z47.1 Aftercare following joint replacement surgery (principal); Z73.6 Limitation of activities due to disability; R26.89 Other abnormalities of gait and mobility; M25.562 Pain in left knee; M62.81 Muscle weakness (generalized); Z96.652 Presence of left artificial knee joint | CPT/HCPCS: 97110; 97140 ==

== ENCOUNTER → 2025-01-28 06:57 | Outpatient (REF) | payer OTHER, SELFPAY | LOC: RAD 06:57 | PROVIDERS: ATTENDING PHYSICIAN Internal Medicine Cardiovascular Disease; FAMILY PHYSICIAN Physician Assistant | DX: R09.89 Other specified symptoms and signs involving the circulatory and respiratory systems (principal) | CPT/HCPCS: 93880 ==

== ENCOUNTER → 2025-02-04 11:38 | Outpatient (REF) | payer OTHER, SELFPAY | LOC: RAD 11:38 | PROVIDERS: ATTENDING PHYSICIAN Physician Assistant | DX: R05.1 Acute cough (principal) | CPT/HCPCS: 71046 ==

== ENCOUNTER → 2025-03-11 07:01 | Outpatient (REF) | payer OTHER, SELFPAY | LOC: MRI 07:01 | PROVIDERS: ATTENDING PHYSICIAN Orthopaedic Surgery; FAMILY PHYSICIAN Physician Assistant | DX: M54.50 Low back pain, unspecified (principal) | CPT/HCPCS: 72148 ==